=== PATIENT | female | born 2005 ===

== ENCOUNTER 2024-07-01 22:34 | Emergency (ER) | payer BC ==
[2024-07-02 00:32] LABS: Bacteria/HPF None Seen HPF (None Seen); Bilirubin Negative (Negative); Blood, Urine Negative (Negative); CAUTI Indications for Culture Pelvic or flank pain; Clarity Clear (Clear); Glucose, Urine (Dipstick) Normal (Negative); Ketone, Urine Negative (Negative); Leukocyte Negative Leu/uL (Negative); Nitrite Negative (Negative); Protein, Urine (Dipstick) Negative (Neg-Trace); RBC/HPF 0-3 HPF (0-3); Specific Gravity, Urine 1.021 (1.002-1.036); Squamous Epithelial 0-3 HPF (0-3); Urobilinogen Normal mg/dL (Less than 2); WBC/HPF 0-3 HPF (0-3); pH, Urine 6.5 (5.0-9.0)
[2024-07-02 00:48] LABS: Urine Culture Reflex No No
[2024-07-02 00:50] LABS: Pregnancy Test - Urine (BHCG) Negative (Negative); Pregu Control Background? CLEAR/WHITE (CLR/WHITE); Pregu Control Bar Appear? YES (CONTROL BAR); Specific Gravity 1.021 (1.002-1.036)
[2024-07-02] MEDS ORDERED: Ketorolac Tromethamine 30 MG (1 mL) VIAL ONE (02:22)
[2024-07-02 02:32] LABS: #Basophils 0.05 10x3/uL (0.0-0.2); #Eosinophils Less than 0.03 10x3/uL (0.0-0.7); %Basophils 0.4 % (0.0-1.0); %Lymphocytes 15.4 % (28.0-48.0); %Neutrophils 79.1 % (31.0-61.0); Hematocrit 43.3 % (36.0-47.0); Hemoglobin 13.4 g/dL (12.0-16.0); Mean Corpuscular HGB CONC 30.9 g/dL (32.0-36.0); Mean Corpuscular Volume 96.9 fL (78.0-98.0); Mean Platelet Volume 11.3 fL (7.4-10.4); Platelet Count 141 10x3/uL (130-400); RBC Distribution Width 12.4 % (11.5-14.5); Red Blood Cell (RBC) Count 4.47 mill/uL (4.00-5.20)
[2024-07-02 02:56] LABS: ALT (SGPT) 19 U/L (8-55); AST (SGOT) 18 U/L (5-34); Albumin 4.4 g/dL (3.5-5.0); Alkaline Phosphatase 71 U/L (40-100); Anion Gap 14 mmol/L (10-20); BUN (Urea Nitrogen) 9 mg/dL (7.0-18.7); Bilirubin, Total 0.7 mg/dL (0.2-1.2); Calc. Creatinine Clearance 0 mL/min (70-130); Calcium 9.5 mg/dL (7.8-10.44); Carbon Dioxide 19 mmol/L (22-29); Chloride 111 mmol/L (98-107); Estimated GFR 103; Globulin 3.5 g/dL (2.4-3.5); Glucose 91 mg/dL (70-105); Lipase 22 U/L (8-78); Potassium 3.8 mmol/L (3.5-5.1); Protein, Total 7.9 g/dL (6.0-8.3); Sodium 140 mmol/L (136-145)
[2024-07-02] MEDS ORDERED: Iopamidol-370 76% 500 ML MDV (1 ML CHARGE) ONE (09:08)
== END 2024-07-02 04:29 | disposition home or self-care (01) ==
LOC: ERS 22:34
DX: R10.32 Left lower quadrant pain (principal)
CPT/HCPCS: 36415; 74177; 80053; 81001; 81025; 83690; 85025; 96374; J1885

== ENCOUNTER 2024-07-02 09:25 | Observation (INO) | payer BC ==
[2024-07-02] MEDS ORDERED: Dextrose 5% in Water 1,000 ML IV PRN (10:56)
[2024-07-02] MEDS ORDERED: Promethazine HCl 25 MG/ML VIAL IM PRN (10:56)
[2024-07-02] MEDS ORDERED: Ipratropium/Albuterol 3 ML NEB NEB PRN (10:56)
[2024-07-02] MEDS ORDERED: Dextrose 50% Abboject 50 ML SYRINGE SLOW IVP PRN (10:56)
[2024-07-02] MEDS ORDERED: Glucagon 1 MG/ML KIT IM PRN (10:56)
[2024-07-02] MEDS ORDERED: hydrALAZINE 20 MG/ML VIAL SLOW IVP PRN (10:56)
[2024-07-02] MEDS ORDERED: Piperacillin/Tazobactam 3.375 GM VIAL ONE (12:09)
[2024-07-02] MEDS ORDERED: Sodium Chloride 0.9% 100 ML ONE (12:09)
[2024-07-02] MEDS ORDERED: fentaNYL 50 mcg/mL 1 mL Vial ONE ×2 (12:48→16:44)
[2024-07-02] MEDS ORDERED: PROPOFOL 20 ML ONE (15:25)
[2024-07-02] MEDS ORDERED: fentaNYL PF 100 MCG/2 ML SYRINGE ONE ×2 (15:25→17:25)
[2024-07-02] MEDS ORDERED: Midazolam HCl 2 mg/2 ml Vial ONE (15:26)
[2024-07-02] MEDS ORDERED: Rocuronium Bromide 10 MG/ML (10ML VIAL) ONE (15:37)
[2024-07-02] MEDS ORDERED: Ketamine In 0.9 % NaCl 50 MG/5 ML SYRINGE ONE (15:55)
[2024-07-02] MEDS ORDERED: Dexamethasone 20 MG/5 ML VIAL ONE (15:56)
[2024-07-02] MEDS ORDERED: Lidocaine 1% PF 5 ML VIAL ONE (15:56)
[2024-07-02] MEDS ORDERED: EPINEPHrine 1 MG/ML VIAL ONE (15:56)
[2024-07-02] MEDS ORDERED: Ondansetron PF 4 MG/2 ML Vial ONE (15:56)
[2024-07-02] MEDS ORDERED: Bupivacaine 0.25% HCL 30 ML VIAL ONE (15:56)
[2024-07-02] MEDS ORDERED: SUGAMMADEX SODIUM 200 MG/2 ML VIAL ONE (16:13)
[2024-07-02] MEDS ORDERED: Meperidine HCl/PF 25 MG (1 mL) VIAL ONE (16:44)
[2024-07-02] MEDS ORDERED: HYDROmorphone 0.5 MG/0.5 ML SYRINGE ONE (18:30)
[2024-07-02] MEDS: Famotidine 20 MG TAB PO SCH (21:07)
[2024-07-02] MEDS: Famotidine/PF 20 mg/2ml Vial SLOW IVP SCH (21:11)
[2024-07-02] MEDS: Ondansetron PF 4 MG/2 ML Vial IVP PRN (21:52)
[2024-07-02] MEDS: Acetaminophen 325 MG TAB PO PRN (21:55)
[2024-07-03 02:41] VITALS: BMI 25.0
[2024-07-03] MEDS: Piperacillin/Tazobactam 3.375 GM in Sodium Chloride 0.9% 100 ML IVPB SCH (02:46)
[2024-07-03] MEDS: HYDROcodone/Acetaminophen 5/325 mg Tablet PO PRN (02:55)
[2024-07-03 05:00] LABS: #Basophils Less than 0.03 10x3/uL (0.0-0.2); #Eosinophils Less than 0.03 10x3/uL (0.0-0.7); %Basophils 0.1 % (0.0-1.0); %Monocytes 2.9 % (0.0-4.0); %Neutrophils 90.6 % (31.0-61.0); Hematocrit 35.9 % (36.0-47.0); Hemoglobin 12.4 g/dL (12.0-16.0); Mean Corpuscular HGB CONC 34.5 g/dL (32.0-36.0); Mean Corpuscular Hemoglobin 29.9 pg (25.0-35.0); Mean Corpuscular Volume 86.5 fL (78.0-98.0); Mean Platelet Volume 11.4 fL (7.4-10.4); Platelet Count 243 10x3/uL (130-400); RBC Distribution Width 12.2 % (11.5-14.5); Red Blood Cell (RBC) Count 4.15 mill/uL (4.00-5.20)
[2024-07-03 05:22] LABS: ALT (SGPT) 18 U/L (8-55); AST (SGOT) 17 U/L (5-34); Albumin 3.8 g/dL (3.5-5.0); Alkaline Phosphatase 66 U/L (40-100); Anion Gap 12 mmol/L (10-20); BUN (Urea Nitrogen) 7 mg/dL (7.0-18.7); Bilirubin, Total 0.7 mg/dL (0.2-1.2); Calc. Creatinine Clearance 122 mL/min (70-130); Calcium 9.1 mg/dL (7.8-10.44); Carbon Dioxide 22 mmol/L (22-29); Chloride 109 mmol/L (98-107); Estimated GFR 110; Globulin 2.9 g/dL (2.4-3.5); Glucose 126 mg/dL (70-105); Potassium 4.5 mmol/L (3.5-5.1); Protein, Total 6.7 g/dL (6.0-8.3); Sodium 138 mmol/L (136-145)
[2024-07-03 08:22] VITALS: BP 111/71; TEMP 98.1
[2024-07-05] MEDS ORDERED: FLU (Fluarix Triv) TS24-25(6MOS UP)/PF 45 MCG/0.5 ML Syringe IM ONE (20:30)
== END 2024-07-03 11:59 | disposition home or self-care (01) ==
LOC: ERS 09:25 → SDC 10:55 → 2SW 10:56 → SURG A 20:44
PROVIDERS: ADMIT Surgery; ATTEND Surgery
PROC: 0DTJ4ZZ Resection of Appendix, Percutaneous Endoscopic Approach (ICD-10-PCS; principal; 2024-07-03)
DX: K35.80 Unspecified acute appendicitis (principal); J30.81 Allergic rhinitis due to animal (cat) (dog) hair and dander; Z91.09 Other allergy status, other than to drugs and biological substances; Z79.51 Long term (current) use of inhaled steroids; Z79.899 Other long term (current) drug therapy
CPT/HCPCS: 36415; 74177; 80053; 81001; 81025; 83690; 85025; 88304; 96374; 99284; A4649; J0171; J0665; J1100; J1170; J1885; J2175; J2250; J2405; J2543; J2704; J3010; J3490; Q9967